=== PATIENT | female | born 2000 | race Caucasian/White ===

== ENCOUNTER 2019-01-19 09:19 | Emergency (ER) | payer SELFPAY, OTHER ==
[2019-01-19] MEDS: KETOROLAC 30 MG INJ IM (11:56)
== END 2019-01-19 12:55 | disposition home or self-care (01) ==
LOC: FTE 12:55
DX: M54.5 Low back pain (principal); E11.9 Type 2 diabetes mellitus without complications; Z79.84 Long term (current) use of oral hypoglycemic drugs
CPT/HCPCS: 72100; 81025; 96372; 99284-25